=== PATIENT | female | born 1950 | race Caucasian/White ===

== ENCOUNTER 2017-08-05 10:45 | Emergency (ER) | payer OTHER ==
[~2017-08-05] VITALS: Ht 157.5 cm; Wt 64.0 kg
[~2017-08-05 10:45] MED LIST: MELOXICAM7.5 MG PO
[2017-08-05] MEDS ORDERED: CEPHALEXIN500 M1 PO (13:14)
[2017-08-05] MEDS ORDERED: MUPIROCIN21 TOP (13:16)
[2017-08-05 13:34] VITALS: BP 139/84
== END 2017-08-05 13:34 | disposition home or self-care (01) | DRG 603 ==
LOC: ED 10:45
PROC: 0H9GXZZ Drainage of Left Hand Skin, External Approach (ICD-10-PCS; principal; 2017-08-05)
DX: L03.012 Cellulitis of left finger (principal); B95.7 Other staphylococcus as the cause of diseases classified elsewhere; W23.1XXA Caught, crushed, jammed, or pinched between stationary objects, initial encounter; Y92.009 Unspecified place in unspecified non-institutional (private) residence as the place of occurrence of the external cause